=== PATIENT | female | born 1940 | race Caucasian/White ===

== ENCOUNTER 2022-11-14 08:00 | Outpatient (CLI) | payer MEDICARE ==
--- NOTE | 2022-11-14 11:38 | XRAY Report ---
PROCEDURE: Hip w/Pelvis 1V RT INDICATIONS: RIGHT HIP PAIN/FALL TECHNIQUE: AP pelvis with lateral view(s) of the right hip(s). COMPARISON: None. FINDINGS: Bones: No fractures or dislocations. No suspicious bony lesions. Definite osteophytes and possibl e narrowing of joint space. Mild degenerative changes of the left hip. Soft tissues: No suspicious soft tissue calcifications or masses. IMPRESSION: No acute bony abnormality. 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 Reviewed by: Sidney Decker MD on 11/14/2022 11:37 AM PDT Approved by: Sidney Decker MD on 11/14/2022 11:37 AM PDT Station ID: [id number]
--- NOTE | 2022-11-14 11:49 | XRAY Report ---
PROCEDURE: Lumbar Spine 2 View INDICATIONS: CONTUSION LOWER BACK/FALL TECHNIQUE: 2 views of the lumbar spine were acquired. COMPARISON: Chest radiograph 01/04/2022 FINDINGS: Bones: 5 [id number] vertebrae are present. There is normal bony alignment. There is an age ind eterminate anterior compression fracture involving the L2 vertebral body which appears to be new comp ared to prior chest radiograph. No definite cortical disruption. 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 Mild levocurvature of the lumbar spine. Degenerative changes of the left hip. No suspic ious bony lesions. Soft tissues: Overlying bowel gas pattern is normal. No suspicious soft tissue calcifications. IMPRESSION: Age-indeterminate anterior compression fracture of the L2 vertebral body which is a new finding compared to chest radiograph dated 01/04/2022. If there is persistent clinical concern with lo calizing pain to the upper lumbar spine, consider evaluation with CT or MRI. MRI would be more sensitive; however, cardiac pacer device is visualized and may prohibit evaluation by MRI. Reviewed by: Sidney Decker MD on 11/14/2022 11:48 AM PDT Approved by: Sidney Decker MD on 11/14/2022 11:48 AM PDT Station ID: [id number]
== END 2022-11-14 23:59 | disposition home or self-care (01) ==
LOC: DI.S 08:00
PROVIDERS: ATTEND Registered Nurse
DX: M16.11 Unilateral primary osteoarthritis, right hip (principal); S32.029A Unspecified fracture of second lumbar vertebra, initial encounter for closed fracture; M47.816 Spondylosis without myelopathy or radiculopathy, lumbar region

== ENCOUNTER 2023-03-04 14:57 | Outpatient (CLI) | payer MEDICARE ==
--- NOTE | 2023-03-06 11:22 | Mammography Report ---
BILATERAL DIGITAL SCREENING MAMMOGRAM 3D/2D: 03/04/2023 CLINICAL: Routine screening. Comparison is made to exams dated: 12/06/2021 mammogram and 11/10/2020 mammogram - [facility]. Both breasts are heterogeneously dense, which may obscure small masses (category c / 51-75% glandular tissue). No significant masses, calcifications, or other findings are seen in either breast. There has been no significant interval change. IMPRESSION: NEGATIVE There is no mammographic evidence of malignancy. A 1 year screening mammogram is recommended. Based on the Tyrer Cuzick model (a risk assessment model) the patients lifetime risk is 0.6% and her 10 year risk is 0.0%. According to the ACR, ACS, and NCCN guidelines, an annual breast MRI exam valentina g with mammogram is recommended if the patients lifetime risk is 20% or greater. This exam was interpreted at Station ID: [id number]. NOTE: For mammograms, a report in lay terms will be sent to the patient. Approximately 15% of breast malignancies will not be visualized mammographically. In the management of a palpable breast mass, a negative mammogram must not discourage biopsy of a clinically suspicious lesion. Electronically Signed By: Sidney Decker M.D. [email or web address]:03/05/2023 17:59:29 letter sent: No_Letter ACR BI-RADS Category 1: Negative 3341F PARENCHYMAL PATTERN: (D) - The breast(s) demonstrate(s) heterogeneously dense fibroglandular pardillony ma. BI-RADS CATEGORY: (1) - 1 Mammogram [id number] 1 year screening LATERALITY: (B)
== END 2023-03-04 14:58 | disposition home or self-care (01) ==
LOC: DI.S 14:57
DX: Z12.31 Encounter for screening mammogram for malignant neoplasm of breast (principal)

== ENCOUNTER 2023-05-12 12:34 | Outpatient (CLI) | payer MEDICARE ==
--- NOTE | 2023-05-12 13:18 | DEXA Report ---
PROCEDURE: Dexa Spine and/or Hip INDICATIONS: POST MENOPAUSAL TECHNIQUE: Dual energy x-ray absorptiometry (DXA) was performed on a [employer] System. Regions measur ed are the AP Spine, femoral neck, and if needed forearm. COMPARISON: Plain films dated 03/11/2023, which demonstrate a moderate L2 compression fracture. FINDINGS: Lumbar Spine: Bone Mineral Density 0.908 g/cm/cm,T score -2.3. Left Femoral Neck: Bone Mineral Density 0.706 g/cm/cm, T score -2.4. Left Hip: Bone Mineral Density 0.739 g/cm/cm,T score -2.1. (T score greater or equal to -1.0: NORMAL) (T score from -1.1 to -2.4: OSTEOPENIA) (T score less than or equal to -2.5 to: OSTEOPOROSIS) Impression: By WHO criteria, this patient has low bone density (osteopenia). However, as patient also has a L2 co mpression fracture which is presumed secondary to bone demineralization. As the greatest single risk factor for compression fracture is a previous compression fracture, consider bone building therapy, i f this has not yet begun. Patients with diagnosis of osteoporosis or osteopenia should have regular bone mineral density assess ment. For those eligible for Medicare, routine testing is allowed once every 2 years. Testing frequ ency can be increased for patients who have rapidly progressing disease or for those who are receivin g medical therapy to restore bone mass. Reviewed by: Wayne Hargrove MD on 05/12/2023 1:16 PM PST Approved by: Wayne Hargrove MD on 05/12/2023 1:16 PM PST Station ID: [id number]
== END 2023-05-12 12:35 | disposition home or self-care (01) ==
LOC: DI 12:34
PROVIDERS: ATTEND Nurse Practitioner Acute Care
DX: Z78.0 Asymptomatic menopausal state (principal); M85.80 Other specified disorders of bone density and structure, unspecified site; M48.56XA Collapsed vertebra, not elsewhere classified, lumbar region, initial encounter for fracture

== ENCOUNTER 2023-05-16 08:00 | Outpatient (CLI) | payer MEDICARE ==
--- NOTE | 2023-05-16 16:16 | XRAY Report ---
PROCEDURE: Foot 3 View RT INDICATIONS: CONTUSION OF RIGHT FOOT TECHNIQUE: 3 views of the foot were acquired. COMPARISON: None. FINDINGS: Bones: No fractures or dislocations. Normal alignment on nonweightbearing view. No suspicious bony l esions. Soft tissues: No suspicious soft tissue calcifications or masses. No soft tissue swelling or radiopa que foreign body. Vascular calcifications. IMPRESSION: No acute bony abnormality. If there is high clinical suspicion for a radiographically occult fracture , consider repeat radiograph in 7-10 days. Reviewed by: Armando Aguayo MD on 05/16/2023 4:15 PM PST Approved by: Armando Aguayo MD on 05/16/2023 4:15 PM PST Station ID: [id number]
== END 2023-05-16 23:59 | disposition home or self-care (01) ==
LOC: DI.S 08:00
PROVIDERS: ATTEND Emergency Medicine
DX: S90.31XA Contusion of right foot, initial encounter (principal)

== ENCOUNTER 2023-06-17 07:00 | Outpatient (CLI) | payer MEDICARE | END 2023-06-17 23:59 | disposition home or self-care (01) | LOC: LAB.S 07:00 | PROVIDERS: ATTEND Physician Assistant Medical | DX: N32.89 Other specified disorders of bladder (principal); R35.0 Frequency of micturition | CPT/HCPCS: 87077; 87086 ==